=== PATIENT | male | born 1975 | race Caucasian/White ===

== ENCOUNTER 2024-12-05 10:58 | Day surgery (SDC) | payer OTHER ==
[~2024-12-05 10:58] MED LIST: Lactated Ringers 1,000 ML IV SCH
[2024-12-05] MEDS ORDERED: Midazolam 1 MG/ML 2 ML SDV ONE (11:30)
[2024-12-05] MEDS ORDERED: Propofol 200 MG/20 ML SDV ONE ×2 (11:30)
[2024-12-05] MEDS ORDERED: Ketamine 200 MG/20 ML MDV ONE (11:30)
[2024-12-05] MEDS ORDERED: fentaNYL 50 MCG/ML SDV ONE (11:30)
[2024-12-05 12:43] VITALS: BP 130/87; PULSE 65
== END 2024-12-05 12:50 | disposition home or self-care (01) ==
LOC: CC.SDS 10:58
PROVIDERS: ATTEND Family Medicine
DX: Z12.11 Encounter for screening for malignant neoplasm of colon (principal); D12.0 Benign neoplasm of cecum; D12.3 Benign neoplasm of transverse colon; D12.5 Benign neoplasm of sigmoid colon; K57.30 Diverticulosis of large intestine without perforation or abscess without bleeding; I10 Essential (primary) hypertension
CPT/HCPCS: 00811; J2250; J2704; J3010; J3490